=== PATIENT | female | born 1985 | race Caucasian/White ===

== ENCOUNTER 2016-06-04 03:55 | Observation (INO) | payer SELFPAY ==
[2016-06-04 04:38] VITALS: BMI 21.2
[2016-06-04 04:59] LABS: ALL NEG? YES; MDMA* NEG (NEGATIVE); METHAMPHETAMINES NEG (NEGATIVE); OXYCODONE NEG (NEGATIVE)
[2016-06-04 05:01] LABS: MPV 8.6 fL (7.4-10.4)
[2016-06-04 05:01] LABS: LEUKOCYTES/URINE NEG (NEGATIVE); NITRITE/URINE NEG (NEGATIVE); RBC/URINE 0-2 (0-5); URINE OCCULT BLOOD NEG (NEG/TRACE); WBC/URINE 0-2 (0-5)
[2016-06-04 05:06] LABS: BLOOD UREA NITROGEN 14 MG/DL (7-17); CALCIUM 9.5 MG/DL (8.4-10.2); CALCULATED OSMOLALITY 273 MOs/Kg (270-290); CHLORIDE 104 mEq/L (98-107); ETOH-MGDL < 10 mg/dL; GLUCOSE 86 MG/DL (70-99); SODIUM LEVEL 142 mEq/L (137-146); TOTAL PROTEIN 8.1 G/DL (6.3-8.2)
[2016-06-04 05:45] LABS: SEG NEUTROPHIL 34 % (45-76)
[2016-06-04 05:46] LABS: TOTAL CELL COUNT 100
--- NOTE | 2016-06-04 06:16 | EDPRACDOC ---
- General Information Chief Complaint: Psychiatric Illness Stated Complaint: PSYCH EVAL Time Seen by Provider: 06/04/16 05:00 Information Source: Patient Mode of Arrival: Law Enforcement Home Medications: Home Medications Albuterol [Proventil] 17 gm IH DAILY PRN 04/27/12 Budesonide/Formoterol Fumarate [Symbicort 160-4.5 Mcg Inhaler] 10.2 gm IH BID Allergies/Adverse Reactions: Allergies Allergy/AdvReac Type Severity Reaction Status Date / Time morphine Allergy HIVES Verified 06/04/16 04:53 - History of Present Illness Onset: tonight HPI: At home, had argument with fiance, locked herself in the bathroom aftr threatening to OD on muscle relaxers. Sig other heard her opening pill bottle and called 911. Pt denies taking any flexeril. Sig other bedside reports appropriate number of pills in the bottle, does not think she took any. no drugs or alcohol. Pt admits to depression and about 7 years ago was treated for depression, can not recall what she was prescribed. No h/o suicide attempt in the past. Reason for Seeking Treatment: 911 Call Presents With: Reports: Suicidal Ideation Expresses: Reports: Suicidal Plan Suicidal Plan: Reports: Overdose Stressors: Reports: Relationships Relevant History: Reports: Depression Medication Compliance: N/A ED Past Medical History - History Reviewed Yes Nurses notes reviewed and agree except as marked - Patient Medical History Respiratory History: Reports: Asthma Psychological History: Denies: Depression - Social Medical History Smoking Status: Never smoker EDM Review of Systems - Review of Systems ROS Negative Except as Marked: Yes All systems reviewed and were negative except as marked - Physical Exam Constitutional: Alert (Awake), No apparent distress Oriented to: Time, Person, Place Last recorded Vital Signs: Last Vital Signs Temp 98.2 F 06/04/16 04:00 Pulse 107 06/04/16 04:00 Resp 20 06/04/16 04:00 BP 113/88 06/04/16 04:00 Pulse Ox 95 06/04/16 04:00 Oxygen Pulse Oxygen Saturation 95 O2 Device Room Air Oxygen Flow Rate Fraction of Inspired Oxygen ( FIO2) - HEENT Head: Normal ( normocephalic) Eye Exam: Normal (PERRL, EOMI, Sclera white) Oropharynx: Normal (Pharynx:Moist without exudate,Gums-no swelling) Nose: No Symptoms Reported (septum midline) Neck: Normal (FROM, trachea at midline) - Respiratory/Cardiovascular Respiratory: Normal - CTA (BBS clear to auscultation without adventitious sounds ) Cardiovascular: Normal (RRR without murmur, gallop or rub) - GI Auscultation: Normal (NABS) Palpation: Normal (Soft,No rebound or guarding, non distended) Tenderness: Non tender Masterson's Sign: Negative - Musculoskeletal Back: Normal (Non-Tender) Extremities: Normal (Normal tone, Pulses 2+ No cyanosis or edema, FROM) - Integumentary Skin: Normal, Warm, Dry Lymphatics: Normal (no adenopathy) - Neurologic Memory Impaired: Normal Motor Function: Normal (Normal tone, Pulses 2+ No cyanosis or edema, FROM) Cranial Nerve: Normal (CN II-X11 intact sensation, strength 5/5) Cerebellar: Normal Mood Description: Depressed Perception: Normal - Results 06/04/16 04:14 06/04/16 04:14 WBC 6.7 xk/uL (3.8-10.8) 06/04/16 04:14 RBC 4.83 xM/uL (4.20-5.40) 06/04/16 04:14 Hgb 10.9 g/dL (12.0-16.0) L 06/04/16 04:14 Hct 34.4 % (36-47) L 06/04/16 04:14 MCV 71 fL (81-99) L 06/04/16 04:14 MCH 22.6 pg (27-32) L 06/04/16 04:14 MCHC 31.8 g/dl (33-36) L 06/04/16 04:14 RDW 16.3 % (11.5-14.5) H 06/04/16 04:14 Plt Count 360 xk/uL (130-400) 06/04/16 04:14 MPV 8.6 fL (7.4-10.4) 06/04/16 04:14 Neut % (Auto) Cancelled 06/04/16 04:14 Lymph % (Auto) Cancelled 06/04/16 04:14 [place] % (Auto) Cancelled 06/04/16 04:14 Eos % (Auto) Cancelled 06/04/16 04:14 Baso % (Auto) Cancelled 06/04/16 04:14 Absolute Neuts (auto) Cancelled 06/04/16 04:14 Absolute Lymphs (auto) Cancelled 06/04/16 04:14 Seg Neuts % (Manual) 34 % (45-76) L 06/04/16 04:14 Band Neutrophils % 0 % (0-5) 06/04/16 04:14 Lymphocytes % (Manual) 50 % (17-44) H 06/04/16 04:14 Monocytes % (Manual) 7 % (0-10) 06/04/16 04:14 Eosinophils % (Manual) 7 % (0-5) H 06/04/16 04:14 Basophils % (Manual) 2 % (0-2) 06/04/16 04:14 Absolute Neutrophils 2.28 xk/uL (1.7-8.2) 06/04/16 04:14 Absolute Lymphocytes 3.35 xk/uL (0.65-4.75) 06/04/16 04:14 Platelet Estimate Norm (NORMAL) 06/04/16 04:14 RBC Morphology 1+ aniso 1+ hypo 1+ micro 1+ poik 06/04/16 04:14 RBC Morphology 1+ aniso 1+ hypo 1+ micro 1+ poik 06/04/16 04:14 RBC Morphology 1+ aniso 1+ hypo 1+ micro 1+ poik 06/04/16 04:14 RBC Morphology 1+ aniso 1+ hypo 1+ micro 1+ poik 06/04/16 04:14 Sodium 142 mEq/L (137-146) 06/04/16 04:14 Potassium 3.8 mEq/L (3.5-5.1) 06/04/16 04:14 Chloride 104 mEq/L (98-107) 06/04/16 04:14 Carbon Dioxide 25 mMOL/L (22-33) 06/04/16 04:14 Anion Gap 17 mEq/L (8-16) H 06/04/16 04:14 BUN 14 MG/DL (7-17) 06/04/16 04:14 Creatinine 0.70 MG/DL (0.52-1.04) 06/04/16 04:14 Estimated GFR (MDRD) > 60 mL/min (>=60) 06/04/16 04:14 Glucose 86 MG/DL (70-99) 06/04/16 04:14 Calculated Osmolality 273 MOs/Kg (270-290) 06/04/16 04:14 Calcium 9.5 MG/DL (8.4-10.2) 06/04/16 04:14 Total Bilirubin 0.6 MG/DL (0.2-1.3) 06/04/16 04:14 AST 24 IU/L (14-36) 06/04/16 04:14 ALT 25 IU/L (9-52) 06/04/16 04:14 Alkaline Phosphatase 52 IU/L (38-126) 06/04/16 04:14 Total Protein 8.1 G/DL (6.3-8.2) 06/04/16 04:14 Albumin 4.4 G/DL (3.5-5.0) 06/04/16 04:14 Urine Color Pale yellow 06/04/16 04:20 Urine Clarity Clear 06/04/16 04:20 Urine pH 6.0 (5.0-8.0) 06/04/16 04:20 Ur Specific [place] 1.005 (1.003-1.035) 06/04/16 04:20 Urine Protein Neg (NEG/TRACE) 06/04/16 04:20 Urine Glucose (UA) Neg (NEGATIVE) 06/04/16 04:20 Urine Ketones Neg (NEGATIVE) 06/04/16 04:20 Urine Occult Blood Neg (NEG/TRACE) 06/04/16 04:20 Urine Nitrite Neg (NEGATIVE) 06/04/16 04:20 Urine Bilirubin Neg (NEGATIVE) 06/04/16 04:20 Urine Urobilinogen <2.0 MG/DL (0-1) 06/04/16 04:20 Ur Leukocyte Esterase Neg (NEGATIVE) 06/04/16 04:20 Urine RBC 0-2 (0-5) 06/04/16 04:20 Urine WBC 0-2 (0-5) 06/04/16 04:20 Ur Epithelial Cells Occ 06/04/16 04:20 Urine Bacteria Few (NEG/FEW) 06/04/16 04:20 Urine Test Neg (NEGATIVE) 06/04/16 04:20 Urine Opiates Screen Neg (NEGATIVE) 06/04/16 04:20 Ur Oxycodone Screen Neg (NEGATIVE) 06/04/16 04:20 Urine Methadone Screen Neg (NEGATIVE) 06/04/16 04:20 Ur Barbiturates Screen Neg (NEGATIVE) 06/04/16 04:20 Ur Tricyclics Screen Neg (NEGATIVE) 06/04/16 04:20 Ur Phencyclidine Scrn Neg (NEGATIVE) 06/04/16 04:20 Ur Amphetamines Screen Neg (NEGATIVE) 06/04/16 04:20 U Methamphetamines Scrn Neg (NEGATIVE) 06/04/16 04:20 Urine MDMA Screen Neg (NEGATIVE) 06/04/16 04:20 U Benzodiazepines Scrn Neg (NEGATIVE) 06/04/16 04:20 Urine Cocaine Screen Neg (NEGATIVE) 06/04/16 04:20 Ur THC Screen Neg (NEGATIVE) 06/04/16 04:20 Plasma/Serum Ethyl Alc % (<0.01) 06/04/16 04:14 Lab Results 06/04/16 06/04/16 06/04/16 04:20 04:20 04:20 WBC RBC Hgb Hct MCV MCH MCHC RDW Plt Count MPV Neut % (Auto) Lymph % (Auto) [place] % (Auto) Eos % (Auto) Baso % (Auto) Absolute Neuts (auto) Absolute Lymphs (auto) Seg Neuts % (Manual) Band Neutrophils % Lymphocytes % (Manual) Monocytes % (Manual) Eosinophils % (Manual) Basophils % (Manual) Absolute Neutrophils Absolute Lymphocytes Platelet Estimate RBC Morphology Sodium Potassium Chloride Carbon Dioxide Anion Gap BUN Creatinine Estimated GFR (MDRD) Glucose Calculated Osmolality Calcium Total Bilirubin AST ALT Alkaline Phosphatase Total Protein Albumin Urine Color Pale yellow Urine Clarity Clear Urine pH 6.0 Ur Specific [place] 1.005 Urine Protein Neg Urine Glucose (UA) Neg Urine Ketones Neg Urine Occult Blood Neg Urine Nitrite Neg Urine Bilirubin Neg Urine Urobilinogen <2.0 Ur Leukocyte Esterase Neg Urine RBC 0-2 Urine WBC 0-2 Ur Epithelial Cells Occ Urine Bacteria Few Urine Test Neg Urine Opiates Screen Neg Ur Oxycodone Screen Neg Urine Methadone Screen Neg Ur Barbiturates Screen Neg Ur Tricyclics Screen Neg Ur Phencyclidine Scrn Neg Ur Amphetamines Screen Neg U Methamphetamines Scrn Neg Urine MDMA Screen Neg U Benzodiazepines Scrn Neg Urine Cocaine Screen Neg Ur THC Screen Neg Plasma/Serum Ethyl Alc 06/04/16 06/04/16 04:14 04:14 WBC 6.7 RBC 4.83 Hgb 10.9 L Hct 34.4 L MCV 71 L MCH 22.6 L MCHC 31.8 L RDW 16.3 H Plt Count 360 MPV 8.6 Neut % (Auto) Cancelled Lymph % (Auto) Cancelled [place] % (Auto) Cancelled Eos % (Auto) Cancelled Baso % (Auto) Cancelled Absolute Neuts (auto) Cancelled Absolute Lymphs (auto) Cancelled Seg Neuts % (Manual) 34 L Band Neutrophils % 0 Lymphocytes % (Manual) 50 H Monocytes % (Manual) 7 Eosinophils % (Manual) 7 H Basophils % (Manual) 2 Absolute Neutrophils 2.28 Absolute Lymphocytes 3.35 Platelet Estimate Norm RBC Morphology 1+ poik Sodium 142 Potassium 3.8 Chloride 104 Carbon Dioxide 25 Anion Gap 17 H BUN 14 Creatinine 0.70 Estimated GFR (MDRD) > 60 Glucose 86 Calculated Osmolality 273 Calcium 9.5 Total Bilirubin 0.6 AST 24 ALT 25 Alkaline Phosphatase 52 Total Protein 8.1 Albumin 4.4 Urine Color Urine Clarity Urine pH Ur Specific [place] Urine Protein Urine Glucose (UA) Urine Ketones Urine Occult Blood Urine Nitrite Urine Bilirubin Urine Urobilinogen Ur Leukocyte Esterase Urine RBC Urine WBC Ur Epithelial Cells Urine Bacteria Urine Test Urine Opiates Screen Ur Oxycodone Screen Urine Methadone Screen Ur Barbiturates Screen Ur Tricyclics Screen Ur Phencyclidine Scrn Ur Amphetamines Screen U Methamphetamines Scrn Urine MDMA Screen U Benzodiazepines Scrn Urine Cocaine Screen Ur THC Screen Plasma/Serum Ethyl Alc - Additional Information Additional Information: Medically cleared, sent to for assessment. Pt is voluntary at this time. - Departure Final Diagnosis: Suicidal ideation
[2016-06-04] MEDS ORDERED: ACETAMINOPHEN 325 MG/TAB TABLET PO PRN (10:36)
[2016-06-04] MEDS ORDERED: LORAZEPAM 1 MG TAB PO PRN (10:36)
[2016-06-04] MEDS ORDERED: TEMAZEPAM 15 MG CAP PO PRN (10:36)
[2016-06-04] MEDS ORDERED: MAGNESIUM HYDROXIDE 30 ML BOTTLE PO PRN (10:36)
[2016-06-04] MEDS ORDERED: ONDANSETRON HCL 4 MG ODT TAB PO PRN (10:36)
[2016-06-04] MEDS ORDERED: IBUPROFEN 400 MG TAB PO PRN (10:36)
[2016-06-04] MEDS ORDERED: Docusate Sodium 100 MG CAP PO PRN (10:36)
[2016-06-04] MEDS ORDERED: GUAIFENESIN 200 MG/10 ML UDC PO PRN (10:36)
[2016-06-04] MEDS: NICOTINE 21 MG PATCH TOP SCH ×2 (10:56→14:44)
[2016-06-04] MEDS ORDERED: ALBUTEROL 6.7 GM MDI INH PRN (16:37)
[2016-06-04] MEDS ORDERED: ALBUTEROL 6.7 GM MDI INH SCH (16:46)
[2016-06-04 21:37] VITALS: BP 106/67; PULSE 101; TEMP 98.2
== END 2016-06-04 21:29 ==
LOC: ED 03:55 → TUOBSINP 06:13 → UNDODISOB 14:55
PROVIDERS: ADMIT Emergency Medicine; ATTEND Emergency Medicine
DX: R45.851 Suicidal ideations (principal); J45.909 Unspecified asthma, uncomplicated
CPT/HCPCS: 36415; 80053; 80307; 81001; 81025; 85007; 85027; 86592; 94640; 99285; G0378; J3490